=== PATIENT | male | born 1970 | race Caucasian/White ===

== ENCOUNTER 2018-05-22 17:31 | Emergency (ER) | payer BC, OTHER ==
[~2018-05-22 17:31] MED LIST: EPINEPHrine SYRINGE 1 MG/10 ML SYRINGE ONE; SODIUM BICARB ADULT 8.4% 50 MEQ/50 ML DISP.SYRIN. ONE
--- NOTE | 2018-05-22 18:06 | PHYS DOC ---
Past Medical History Past Medical History: Hypertension Adult General Chief Complaint Chief Complaint: cardiac arrest HPI HPI Patient is a 48 year old male who brought in by EMS because of cardiac arrest. Patient had and weakness syncopal episode while he was at work and EMS was called. EMS reported that he had O2 sat of 70% at room air and splint was cardiac respiratory arrest at 1710. CPR was started by EMS and patient was intubated. Patient had 1 episode of spontaneous pulse but at arrival to ER at 1730 did not have cardiac restriction activity and CPR was in progress. Patient had nonreactive pupils without dilation. Patient had bilateral breath sounds with assisted respiration and good femoral pulses with CPR. Review of Systems Review of Systems Unable to obtain because of unresponsiveness Physical Exam Physical Exam Constitutional: Unresponsive, CPR in progress, morbidly obese HENT: Normocephalic, atraumatic Eyes: Nonreactive pupils Neck: Atraumatic Cardiovascular: Sinus tachycardia with CPR, PEA without CPR Lungs & Thorax: Bilateral breath sounds with assisted respiration Abdomen: Atraumatic Skin: Cyanosis and congestion of face and neck and upper chest Extremities: No obvious abnormality Neurologic: Unresponsive EKG EKG EKG interpreted by me. EKG at 1747 showed sinus tachycardia at rate of 113, prolonged TN interval AT 200, left axis deviation, right bundle branch block, LVH, no acute ST and T-wave elevation. Radiology/Procedures Radiology/Procedures [] Course & Med Decision Making Course & Med Decision Making Evaluation of patient in ER showed 48-year-old male patient brought in with CPR in progress. Patient. Patient had a few short time spontaneous pulse without CPR with him to PA and CPR was resumed. CPR continued until 1801 without successful response to CPR. Patient had dilated pupil no cardiac activity with bedside ultrasound. Because of 51 minutes unsuccessful CPR decided to stop CPR at 1801. please see details of code blue report. Patient primary care on-call physician Dr. Miller was informed at 2019. Dragon Disclaimer Dragon Disclaimer This electronic medical record was generated, in whole or in part, using a voice recognition dictation system. Departure Departure Disposition: 20 (at 1801) Condition: FERCHO MORALES MD May 22, 2018 18:06
--- NOTE | 2018-05-22 18:44 | EKG ---
[facility] [address] [place] [address] Test Date: 2018-05-22 Test Time: 17:47:59 Pat Name: MEL SHEA Department: Room: Gender: M Staffing Associate: : [id number] Requested By: FERCHO MORALES Order Number: [id number] Reading MD: Measurements Intervals Hosmer Rate: 113 P: 115 MO: 200 QRS: -75 QRSD: 118 T: 51 QT: 318 QTc: 442 Interpretive Statements SINUS TACHYCARDIA PROLONGED MO INTERVAL ABNORMAL LEFT AXIS DEVIATION R-S TRANSITION ZONE IN V LEADS DISPLACED TO THE LEFT INCOMPLETE RIGHT BUNDLE BRANCH BLOCK LVH WITH REPOLARIZATION ABNORMALITYQRS(T) CONTOUR ABNORMALITY CONSIDER ANTEROLATERAL MYOCARDIAL DAMAGE CONSISTENT WITH INFERIOR INFARCT POSSIBLY RECENTABNORMAL ECGRI6.01 No previous ECG available for comparison
== END 2018-05-22 22:04 | disposition expired ==
LOC: ER 17:31
DX: I46.9 Cardiac arrest, cause unspecified (principal); R23.0 Cyanosis; I10 Essential (primary) hypertension
CPT/HCPCS: 92950; 93005; 99291; J0171; 99285-25